=== PATIENT | female | born 1960 | race Two or more races ===

== ENCOUNTER → 2024-09-02 | Outpatient (CLI) | payer MEDICAID, SELFPAY ==
--- NOTE | 2024-09-02 | XR_ITS ---
Examination: Sacrum and coccyx 3 views TECHNIQUE: AP inclined AP lateral sacrum and coccyx 3 views Exam date and time: September 02, 2024 1255 hours INDICATIONS: Patient fell one week ago with injury to the sacrum and coccyx, sacral pain FINDINGS: Prominent osteopenia Adequate alignment sacral and coccygeal segments No acute fracture depicted IMPRESSION: No acute fracture
--- NOTE | 2024-09-02 | XR_ITS ---
Examination: Lumbar spine, 5 views Technique: Lumbar spine AP, lateral, coned lateral lower lumbar spine, bilateral obliques 5 views Exam date and time: September 02, 2024 at 1233 hours INDICATIONS: Patient fell one week ago with injury to lower back, lower back pain. FINDINGS: Prominent osteopenia Interval fracture or depression superior endplate L4, not seen on 06/09/2022 Chronic osteoporotic compression T12 Mild lumbar spondylosis Mild to moderate lumbar disc narrowing at the lower 3 lumbar levels IMPRESSION: Recommend CT scan lumbar spine follow-up to exclude mild acute compression fracture L4
--- NOTE | 2024-09-02 | XR_ITS ---
EXAMINATION: Cervical spine, 5 views Technique: Cervical spine AP, AP odontoid, lateral, bilateral obliques, 5 views Exam date and time: September 02, 2024 1233 hours INDICATIONS: Neck pain after falling one week ago with injury to the neck FINDINGS: Adequate alignment cervical vertebral bodies No cervical fracture Intact odontoid No significant neural foraminal stenosis IMPRESSION: No acute cervical fracture
== END | disposition home or self-care (01) ==
PROVIDERS: PCP Physician Assistant; Referring Provider Physician Assistant; Visit Provider Physician Assistant
DX: S19.9XXA Unspecified injury of neck, initial encounter (principal); S39.92XA Unspecified injury of lower back, initial encounter; W19.XXXA Unspecified fall, initial encounter
CPT/HCPCS: 72050; 72110; 72220

== ENCOUNTER → 2025-02-27 | Outpatient (CLI) | payer MEDICAID, SELFPAY ==
--- NOTE | 2025-02-27 12:30 | XR_ITS ---
Examination: Retroperitoneal ultrasound, complete Technique: Multiple high resolution grayscale images of the retroperitoneum obtained, including kidneys and bladder. Exam date and time:February 27, 2025 1320 hours INDICATIONS: Bilateral flank pain beginning 2 weeks ago FINDINGS: Right kidney 12.4 cm cortex 1.1 cm Left kidney 10.8 cm cortex 1.3 cm Mild bilateral renal parenchymal scar formation No renal calculi No bladder mass or bladder calculi Bladder prevoid volume 280 cc postvoid volume 18 cc IMPRESSION: Mild bilateral renal parenchymal scar formation Bilateral renal cortical thinning No renal calculi or hydronephrosis
== END | disposition home or self-care (01) ==
PROVIDERS: PCP Physician Assistant; Referring Provider Physician Assistant; Visit Provider Physician Assistant
DX: N28.89 Other specified disorders of kidney and ureter (principal)
CPT/HCPCS: 76770

== ENCOUNTER → 2025-06-19 | Outpatient (CLI) | payer MEDICARE, MEDICAID, SELFPAY ==
--- NOTE | 2025-06-19 09:26 | XR_ITS ---
Examination: Lumbar spine, 5 views Technique: Lumbar spine AP, lateral, coned lateral lower lumbar spine, bilateral obliques 5 views Exam date and time: June 19, 2025, 0928 hours, comparison September 02, 2024. INDICATIONS: Patient fell 6 months ago with lower back pain more severe the last 2 months. FINDINGS: Prominent osteopenia. Lumbar dextroscoliosis 8 degrees Diffuse [id number] facet arthropathy. Stable compression fractures L4, L2, T12 IMPRESSION: Prominent osteopenia Stable chronic appearing compression fractures L4, L2, T12 but clinical correlation advised CT examination lumbar spine without contrast follow-up would best assess for acute lumbar fractures
== END | disposition home or self-care (01) ==
LOC: CDIM 09:01
PROVIDERS: Referring Provider Physician Assistant; Visit Provider Physician Assistant
DX: M85.88 Other specified disorders of bone density and structure, other site (principal); S32.049A Unspecified fracture of fourth lumbar vertebra, initial encounter for closed fracture; S32.029A Unspecified fracture of second lumbar vertebra, initial encounter for closed fracture; S22.089A Unspecified fracture of T11-T12 vertebra, initial encounter for closed fracture; W19.XXXA Unspecified fall, initial encounter
CPT/HCPCS: 72110